=== PATIENT | female | born 1985 | race Caucasian/White ===

== ENCOUNTER 2016-04-25 20:18 | Emergency (ER) | payer MEDICAID, SELFPAY | END 2016-04-25 21:54 | disposition home or self-care (01) | LOC: FASTR 20:18 | DX: S62.663A Nondisplaced fracture of distal phalanx of left middle finger, initial encounter for closed fracture (principal); X50.9XXA Other and unspecified overexertion or strenuous movements or postures, initial encounter; Y92.009 Unspecified place in unspecified non-institutional (private) residence as the place of occurrence of the external cause; S93.612A Sprain of tarsal ligament of left foot, initial encounter ==